=== PATIENT | female | born 1995 | race African-American/Black ===

== ENCOUNTER → 2020-10-06 | Outpatient (CLI) | payer SELFPAY ==
--- NOTE | 2020-10-06 16:56 | RADIOLOGY REPORT (SQ) ---
EXAM DESCRIPTION: U/S [id number] TRNABD 1GES W/ODOP IMAGES COMPLETED DATE/TIME: 10/06/2020 2:24 pm REASON FOR STUDY: (Z34.81)ENCOUNTER FOR SUPRVSN OF NORMAL , FIRST TRIMESTER Z34.81 ENCOUNT ER FOR SUPRVSN OF NORMAL , FIRST TRIM COMPARISON: None. TECHNIQUE: Transvaginal static and realtime grayscale images acquired of the pelvis. Additional mitchell cted spectral and color Doppler images recorded. All images stored on PACs. bHCG: Not available. CLINICAL DATES: LMP 08/22/2020, MARIANGEL 05/29/2021, EGA 6 weeks 3 days LIMITATIONS: None. FINDINGS: FETUS: Single Living intrauterine . ULTRASOUND EGA: 6 weeks 0 days ULTRASOUND MARIANGEL: 06/01/2021 EFW: Not applicable less than 20 weeks. CRL: 4 mm FHR: 110 beats per minute. SURVEY: Too early to assess. AMNIOTIC FLUID: Adequate amount. PLACENTA: Not yet developed due to early gestation. SUBCHORIONIC BLEED: No. SIZE OF BLEED: Not applicable. UTERUS: No masses. No anomalies. Uterus measures 8.3 x 7.0 x 5.2 cm CERVICAL LENGTH: 2.6 cm Closed. RIGHT ADNEXA: 3.1 x 2.4 x 2.3 cm. Normal vascular flow. No adnexal free fluid. No adnexal masses. LEFT ADNEXA: 3.1 x 1.5 x 1.6 cm. Normal vascular flow. No adnexal free fluid. No adnexal masses. FREE FLUID: None. OTHER: No other significant finding. IMPRESSION: LIVING INTRAUTERINE . ULTRASOUND EGA - 6 weeks and 0 days Trimester of : First trimester - 0 to 13 weeks. TECHNICAL DOCUMENTATION: JOB ID: [id number] 2010 [employer]- All Rights Reserved rev Reading location - IP/workstation name: [email or web address]
== END ==
LOC: RAD 13:43
PROVIDERS: ATTEND Nurse Practitioner Family
DX: Z34.81 Encounter for supervision of other normal pregnancy, first trimester (principal); Z3A.01 Less than 8 weeks gestation of pregnancy
CPT/HCPCS: 76801